=== PATIENT | female | born 1990 | race American Indian/Alaskan Native ===

== ENCOUNTER 2019-02-20 16:45 | Inpatient (IN) | payer MEDICAID ==
--- NOTE | 2019-02-20 17:38 | History and Physical Report ---
History of Present Illness Date of examination: 02/20/19 Date of admission: 02/20/19 16:45 Chief complaint: IOL secondary to oligohydramnios; BPP 4/8 History of present illness: 28 yo, @ 37.5 wks gestation. Initiated care at 9 wks. She was sent from clinic today for IOL for oligohydramnios (ROMEO- 0-2) and BPP of 4/8. She reports decreased movement and NST was equivocal. Denies LOF or VB. Her has been complicated by keloid growths on abdomen, Trichomonas (negative JONATHON - 08/09/18) and h/o HSV Igg (valtrex prophylaxis initiated on 02/12/19). Labs: O +, antibody negative; Rubella immune; VDRL non-reactive; HBsAg negative; HIV negative; HIV negative; Vit D - 10.8; Varicella immune; Gc/Chlamydia negative; Sickle cell screen negative; MSAFP negative; 1 hr gtt - 97; GBS negative. Past History Past Medical History: no pertinent history, other (Keloid growths - abdomen) Past Surgical History: no surgical history [employer] History: herpes, trichomonas Family/Genetic History: hypertension, other (Coagulation defect) Social history: single, full code. denies: smoking, alcohol abuse, prescription drug abuse, IV drug use - Obstetrical History Expected Date of Delivery: 03/08/19 Actual Gestation: 37 Week(s) 5 Day(s) : 2 Para: 0 Hx # Term Pregnancies: 0 Number of Pregnancies: 0 Spontaneous Abortions: 0 Induced : 1 Number of Living Children: 0 Medications and Allergies Allergies Allergy/AdvReac Type Severity Reaction Status Date / Time No Known Allergies Allergy Verified 02/20/19 17:20 Review of Systems All systems: negative - Vital Signs Vital signs: Vital Signs Pulse BP 85 130/69 02/20/19 17:20 02/20/19 17:20 Temp Pulse Resp BP Pulse Ox 85 130/69 02/20/19 17:20 02/20/19 17:20 - Physical Exam Breasts: Positive: normal Cardiovascular: Regular rate Lungs: Positive: Normal air movement Abdomen: Positive: other (Several keloids noted) Genitourinary (Female): Positive: normal external genitalia, normal perenium Vagina: Positive: normal moisture Uterus: Positive: other (S=D) Extremities: Positive: normal Deep Tendon Reflex Grade: Normal +2 - Obstetrical FHR: category 1 Uterine Contraction Monitor Mode: External Cervical Dilatation: 1 Cervical Effacement Percentage: 70 station: -3 Uterine Contraction Frequency (min): none Uterine Tone Measurement Phase: Resting Results All other labs normal. Assessment and Plan - Patient Problems (1) Encounter for induction of labor Current Visit: Yes Status: Acute (2) Oligohydramnios in third trimester Current Visit: Yes Status: Acute Plan to address problem: Admit to L & D Cervidil x 12 hr as tolerated Pain meds as desired Anticipate
[2019-02-20] MEDS ORDERED: XYLOCAINE 2% INFILTRATI ONE (17:58)
[2019-02-20] MEDS ORDERED: BRETHINE SUB-Q PRN (17:58)
[2019-02-20] MEDS ORDERED: ZOFRAN IV PRN (17:58)
[2019-02-20] MEDS ORDERED: SUBLIMAZE IV PRN (17:58)
[2019-02-20] MEDS ORDERED: CERVIDIL VG ONE (17:58)
[2019-02-20] MEDS ORDERED: STADOL IV PRN (17:58)
[2019-02-20] MEDS ORDERED: MINERAL OIL PO PRN (17:58)
[2019-02-20] MEDS ORDERED: PITOCin/NS 20 UNIT/1000ML DRIP 20 UNITS/1,000 ML BAG IV SCH (18:00)
[2019-02-20 19:05] LABS: Hematocrit 29.8 % (30.3-42.9); Hemoglobin 9.7 gm/dl (10.1-14.3); Mean Corpuscular HGB Conc 33 % (30-34); Mean Corpuscular Volume 94 fl (79-97); Platelet Count 271 K/mm3 (140-440); Red Blood Count 3.18 M/mm3 (3.65-5.03); Red Cell Distribution Width 14.3 % (13.2-15.2)
[2019-02-20] MEDS: TYLENOL PO PRN (20:56)
[2019-02-20] MEDS: LACTATED RINGERS 1,000 ML IV SCH (23:07)
--- NOTE | 2019-02-21 10:57 | Progress Note ---
Assessment and Plan A: IUP @ 37 6/7 Weeks Category I Tracing Oligo BPP 4/8 Maternal Obesity GBS Negative P: Cook's Cervical Ripening Balloon Placed Low-Dose Pitocin Subjective - Subjective Date of service: 02/21/19 Patient reports: movement normal Objective - Vital Signs Vital Signs: Vital Signs - 12hr 02/20/19 02/21/19 02/21/19 23:06 00:07 01:07 Temperature Pulse Rate 74 78 80 Respiratory Rate Blood Pressure 112/57 108/52 129/72 Blood Pressure [Right] O2 Sat by Pulse Oximetry 02/21/19 02/21/19 02/21/19 02:08 03:07 04:07 Temperature Pulse Rate 77 81 81 Respiratory Rate Blood Pressure 132/73 127/70 125/70 Blood Pressure [Right] O2 Sat by Pulse Oximetry 02/21/19 02/21/19 02/21/19 05:07 06:07 06:08 Temperature 98.6 F Pulse Rate 96 H 90 90 Respiratory 16 Rate Blood Pressure 111/61 125/73 Blood Pressure 125/73 [Right] O2 Sat by Pulse 99 Oximetry 02/21/19 02/21/19 06:55 07:07 Temperature 98.2 F Pulse Rate 85 Respiratory 18 Rate Blood Pressure 121/72 Blood Pressure [Right] O2 Sat by Pulse Oximetry - Exam Breasts: normal Cardiovascular: Regular rate Lungs: Clear to auscultation, Normal air movement Abdomen: Present: normal appearance, soft, normal bowel sounds Uterus: Present: normal, firm, fundal height above umbilicus FHR: category 1 Uterine Contraction Monitor Mode: External Cervical Dilatation: 2 (Intact) Cervical Effacement Percentage: 60 station: -3 Uterine Contraction Pattern: Absent Uterine Tone Measurement Phase: Resting Extremities: normal - Labs Labs: Abnormal Labs 02/20/19 18:22 WBC 14.7 H RBC 3.18 L Hgb 9.7 L Hct 29.8 L Laboratory Results - last 24 hr 02/20/19 02/20/19 18:22 18:22 WBC 14.7 H RBC 3.18 L Hgb 9.7 L Hct 29.8 L MCV 94 MCH 31 MCHC 33 RDW 14.3 Plt Count 271 Blood Type O POSITIVE Antibody Screen Negative
[2019-02-21] MEDS: TYLENOL PO PRN (10:59)
[2019-02-21] MEDS ORDERED: PITOCin/NS 30 UNIT/500ML 30 UNITS/500 ML BAG IV SCH (11:00)
--- NOTE | 2019-02-21 16:51 | Progress Note ---
Assessment and Plan A: IUP @ 37 6/7 Weeks Category I Tracing [place]lig[place] BPP 4/8 Maternal Obesity GBS Negative P: Continue Pitocin Augmentation AROM Internals X 2 Subjective - Subjective Date of service: 02/21/19 Patient reports: movement normal, contractions Objective - Vital Signs Vital Signs: Vital Signs - 12hr 02/21/19 02/21/19 02/21/19 05:07 06:07 06:08 Temperature 98.6 F Pulse Rate 96 H 90 90 Respiratory 16 Rate Blood Pressure 111/61 125/73 Blood Pressure 125/73 [Right] O2 Sat by Pulse 99 Oximetry 02/21/19 02/21/19 02/21/19 06:55 07:07 11:07 Temperature 98.2 F Pulse Rate 85 104 H Respiratory 18 Rate Blood Pressure 121/72 136/83 Blood Pressure [Right] O2 Sat by Pulse Oximetry 02/21/19 02/21/19 02/21/19 12:07 12:35 13:07 Temperature 98.2 F Pulse Rate 88 95 H Respiratory 22 Rate Blood Pressure 129/65 155/70 Blood Pressure [Right] O2 Sat by Pulse Oximetry 02/21/19 02/21/19 02/21/19 14:07 15:07 16:07 Temperature Pulse Rate 88 87 88 Respiratory Rate Blood Pressure 144/89 131/73 131/75 Blood Pressure [Right] O2 Sat by Pulse Oximetry - Exam Breasts: normal Cardiovascular: Regular rate Lungs: Clear to auscultation, Normal air movement Abdomen: Present: normal appearance, soft, normal bowel sounds Uterus: Present: normal, firm, fundal height above umbilicus FHR: category 1 Uterine Contraction Monitor Mode: External Cervical Dilatation: 6 (AROM of a small gush of clear fluid @ 1637) Cervical Effacement Percentage: 70 station: -2 Uterine Contraction Frequency (min): 2-3 Uterine Contraction Pattern: Regular Uterine Tone Measurement Phase: Resting Uterine Contraction Intensity: Moderate Extremities: normal - Labs Labs: Abnormal Labs 02/20/19 18:22 WBC 14.7 H RBC 3.18 L Hgb 9.7 L Hct 29.8 L Laboratory Results - last 24 hr 02/20/19 02/20/19 02/20/19 18:22 18:22 18:22 WBC 14.7 H RBC 3.18 L Hgb 9.7 L Hct 29.8 L MCV 94 MCH 31 MCHC 33 RDW 14.3 Plt Count 271 RPR Nonreactive Blood Type O POSITIVE Antibody Screen Negative
[2019-02-21] MEDS: LACTATED RINGERS 1,000 ML IV SCH ×2 (17:21→19:03)
--- NOTE | 2019-02-21 17:49 | Anesthesia Consultation ---
Anesthesia Consult and Med Hx Date of service: 02/21/19 - Airway Anesthetic Teeth Evaluation: Good ROM Head & Neck: Adequate Mental/Hyoid Distance: Adequate Mallampati Class: Class II Intubation Access Assessment: Probably Good - Pulmonary Exam CTA: Yes - Cardiac Exam Cardiac Exam: RRR - Pre-Operative Health Status ASA Pre-Surgery Classification: ASA3 Proposed Anesthetic Plan: Epidural - Pulmonary Hx Asthma: No COPD: No Hx Pneumonia: No - Cardiovascular System Hx Hypertension: No - Central Nervous System Hx Seizures: No Hx Psychiatric Problems: No - Endocrine Hx Renal Disease: No Hx End Stage Renal Disease: No Hx Hypothyroidism: No Hx Hyperthyroidism: No - Hematic Hx Anemia: No Hx Sickle Cell Disease: No - Other Systems Hx Alcohol Use: No Hx Obesity: Yes
[2019-02-21] MEDS ORDERED: NARCAN 2 MG/2 ML IV PRN (17:50)
[2019-02-21] MEDS ORDERED: fentaNYL-BUPIV 2 MCG/ML-0.125% 200 MCG/100 ML BAG EPIDURAL SCH (18:00)
[2019-02-21] MEDS ORDERED: CYTOTEC VG ONE ×2 (21:00→22:23)
[2019-02-21] MEDS ORDERED: CYTOTEC ONE (21:05)
[2019-02-21] MEDS ORDERED: METHERGINE IM ONE (21:06)
[2019-02-21] MEDS ORDERED: NORCO 5/325 PO PRN (22:08)
[2019-02-21] MEDS ORDERED: DULCOLAX PR PRN (22:08)
[2019-02-21] MEDS ORDERED: BENADRYL PO PRN (22:08)
[2019-02-21] MEDS ORDERED: LANSINOH TP PRN (22:08)
--- NOTE | 2019-02-21 22:18 | Procedure Note ---
OB Delivery Note - Delivery Date of Delivery: 02/21/19 (2056) Surgeon: CHAS MARK Estimated blood loss: other (400) - Vaginal Delivery presentation: vertex Delivery position: OA Intrapartum events: extend. bradycardia Delivery induction: cervidil Delivery augmentation: rupture of membranes, pitocin Delivery monitor: internal FHT, internal uterine Route of delivery: Delivery placenta: spontaneous Delivery cord: nuchal cord, 3 umbilical vessels Episiotomy: none Delivery laceration: 1st degree Delivery repair: vicryl Anesthesia: epidural Delivery comments: of a live 514 female infant over a 1st degree perineal laceration under epidural anesthesia with Apgars of 8 and 9 at 2056 on 02/21/2019. Nuchal cord x 1 easily manually reduced on the perineum prior to delivery of the anterior shoulder. Infant directly to maternal abd/chest, skin to skin contact. Spontaneous delivery of placenta complete and intact with Sahu side presenting at 2101. Heavy uterine bleeding and boggy uterus after placental delivery. Given Methergine 0.2mg IM and Cytotec 1000 mcg per rectum. Uterus became firm with vigorous external uterine massage; and bleeding became scant. Perineal laceration repaired with 2-[address]-1. Delayed cord clamping and cutting; Cord cut by maternal grandmother. Cord blood collected; Placenta discarded. - Infant A at 1 minute: 8 at 5 minutes: 9 Infant Gender: Female ([phone])
[2019-02-21] MEDS ORDERED: SODIUM CHLORIDE FLUSH SYRINGE 10 ML IV PRN (23:00)
[2019-02-22] MEDS: IBUPROFEN PO SCH ×4 (01:07→23:38)
[2019-02-22] MEDS: PRENATAL VITAMIN PO SCH (10:20)
[2019-02-22 11:15] LABS: Hematocrit 25.7 % (30.3-42.9); Hemoglobin 8.3 gm/dl (10.1-14.3)
--- NOTE | 2019-02-22 11:34 | Progress Note ---
Assessment and Plan A: PPD#1 s/p 02/21/19 @ 20:57 Bottlefeeding Stable P: Routine PP care Anticipate discharge home in am Subjective - Subjective Date of service: 02/22/19 Principal diagnosis: PPD#1 s/p 02/21 @ 2056 Interval history: See H&P and delivery note Patient reports: appetite normal, voiding normally, pain well controlled, ambulating normally [place]: doing well, bottle feeding Objective - Vital Signs Latest vital signs: Vital Signs Temp Pulse Resp BP BP Pulse Ox 02/22/19 04:30 98.4 F 81 18 103/61 02/22/19 01:07 18 02/22/19 00:00 98.7 F 75 19 122/64 02/21/19 22:56 83 122/58 02/21/19 22:41 84 115/55 02/21/19 22:26 84 125/58 02/21/19 22:19 99.4 F 92 H 18 113/73 02/21/19 22:11 88 125/60 02/21/19 21:57 91 H 129/58 02/21/19 21:41 141/68 02/21/19 21:33 89 131/63 02/21/19 21:29 94 H 124/59 02/21/19 21:14 105 H 114/55 02/21/19 20:44 102 H 137/67 100 02/21/19 20:39 105 H 100 02/21/19 20:34 96 H 100 02/21/19 20:29 95 H 100 02/21/19 20:24 105 H 100 02/21/19 20:19 99 H 100 02/21/19 20:14 98 H 100 02/21/19 20:12 101 H 123/58 02/21/19 20:09 102 H 100 02/21/19 20:08 113 H 121/55 02/21/19 20:06 114 H 118/62 02/21/19 20:04 97 H 121/62 100 02/21/19 20:00 95 H 189/68 02/21/19 19:59 94 H 100 02/21/19 19:57 96 H 147/70 02/21/19 19:56 101 H 150/71 02/21/19 19:54 98 H 128/65 100 02/21/19 19:51 94 H 138/72 02/21/19 19:49 90 144/65 100 02/21/19 19:47 96 H 142/64 02/21/19 19:45 99 H 132/69 02/21/19 19:44 93 H 100 02/21/19 19:43 91 H 133/63 02/21/19 19:41 90 124/59 02/21/19 19:40 98 H 121/71 02/21/19 19:39 100 H 100 02/21/19 19:37 97 H 122/61 02/21/19 19:35 91 H 132/68 02/21/19 19:34 94 H 100 02/21/19 19:33 96 H 133/65 02/21/19 19:32 88 146/66 02/21/19 19:29 88 121/67 100 02/21/19 19:27 92 H 121/62 02/21/19 19:25 87 131/59 02/21/19 19:24 86 100 02/21/19 19:23 95 H 145/63 02/21/19 19:22 96 H 138/63 02/21/19 19:19 90 134/58 100 02/21/19 19:18 93 H 141/63 02/21/19 19:16 93 H 109/58 02/21/19 19:14 93 H 100 02/21/19 19:13 93 H 127/59 02/21/19 19:12 92 H 132/62 02/21/19 19:10 98.7 F 92 H 18 151/70 145/63 02/21/19 19:09 91 H 100 02/21/19 19:07 100 H 97/55 02/21/19 19:05 85 112/59 02/21/19 19:04 102 H 100 02/21/19 19:03 95 H 111/57 02/21/19 19:02 93 H 134/60 02/21/19 19:00 98 H 147/63 02/21/19 18:59 100 H 99 02/21/19 18:54 92 H 100 02/21/19 18:53 92 H 125/57 02/21/19 18:51 80 127/63 02/21/19 18:49 85 123/60 100 02/21/19 18:47 86 132/62 02/21/19 18:46 95 H 137/61 02/21/19 18:44 98 H 133/65 98 02/21/19 18:41 86 135/63 02/21/19 18:39 81 130/63 100 02/21/19 18:37 88 129/62 02/21/19 18:35 90 124/60 02/21/19 18:34 93 H 120/66 97 02/21/19 18:31 89 139/77 02/21/19 18:29 90 144/69 99 02/21/19 18:26 103 H 152/65 02/21/19 18:24 101 H 99 02/21/19 18:08 94 H 149/79 02/21/19 17:18 97.9 F 02/21/19 17:07 97 H 139/66 02/21/19 16:07 88 131/75 02/21/19 15:07 87 131/73 02/21/19 14:07 88 144/89 02/21/19 13:07 95 H 155/70 02/21/19 12:35 98.2 F 22 02/21/19 12:07 88 129/65 Intake and Output 02/21/19 02/22/19 02/22/19 23:59 07:59 15:59 Intake Total 235.7 300 Output Total 500 600 Balance -264.3 -300 Intake: IV 235.7 Lactated Ringers 1,000 ml 212.5 @ 125 mls/hr IV DIRECT VIRAL Rx#:[id number] PITOCin/NS 30 UNIT/500ML 23.2 30 units In 500 ml @ 4 mls/hr IV TITR VIRAL Rx#: [id number] Intake, Free Water 300 Output: Urine 500 600 Indwelling Catheter 300 Void 200 600 Other: Total, Output Amount 200 600 # Voids Void 1 1 Estimated Blood Loss 400 - Exam Breasts: Present: normal Cardiovascular: Present: Regular rate, Normal S1, Normal S2, No murmurs Lungs: Present: Clear to auscultation, Normal air movement Abdomen: Present: normal appearance, soft, normal bowel sounds. Absent: distention, tenderness Vulva: both: laceration/episiotomy (1st degree, well approximated) Uterus: Present: firm, fundal height below umbilicus (-1) Extremities: Present: normal Deep Tendon Reflex Grade: Normal +2 - Labs Labs: Abnormal lab results 02/22/19 Range/Units 10:35 Hgb 8.3 L (10.1-14.3) gm/dl Hct 25.7 L (30.3-42.9) %
--- NOTE | 2019-02-22 11:36 | Discharge Summary ---
Providers - Providers Date of Admission: 02/20/19 16:45 Date of discharge: 02/23/19 Attending physician: MAHESH JOHNSON MD Primary care physician: MAHESH JOHNSON MD Hospitalization Reason for admission: active labor, IUP at term Delivery: Procedure details: Seer H&P and delivery note Episiotomy: none Laceration: 1st degree complications: none Discharge diagnosis: IUP at term delivered baby: female Condition at discharge: Good Disposition: DC-01 TO HOME OR SELFCARE Plan - Provider Discharge Summary Activity: routine, no sex for 6 weeks, no heavy lifting 4 weeks, no strenuous exercise Diet: routine Instructions: routine Additional instructions: [] Smoking cessation referral if applicable(refer to patient education folder for contact #) [] Refer to [facility] Booklet Call your doctor immediately for: * Fever > 100.5 * Heavy vaginal bleeding ( >1 pad per hour) * Severe persistent headache * Shortness of breath * Reddened, hot, painful area to leg or breast * Drainage or odor from incision. * Keep incision clean and dry at all times and follow doctor's instructions regarding bathing/showering - Follow up plan Follow up: MAHESH JOHNSON MD [Primary Care Provider] - 6 Weeks
[2019-02-23] MEDS: IBUPROFEN PO SCH ×2 (05:51→12:56)
[2019-02-23 09:27] VITALS: BP 124/78
[2019-02-23] MEDS: PRENATAL VITAMIN PO SCH (10:20)
== END 2019-02-23 15:00 | disposition home or self-care (01) | DRG 775 ==
LOC: LD 16:45 → OB 02-21 23:18
PROVIDERS: ADMIT Obstetrics & Gynecology; ATTEND Obstetrics & Gynecology
PROC: 10E0XZZ Delivery of Products of Conception, External Approach (ICD-10-PCS; principal; 2019-02-21)
PROC: 0HQ9XZZ Repair Perineum Skin, External Approach (ICD-10-PCS; 2019-02-21)
PROC: 3E0P7VZ Introduction of Hormone into Female Reproductive, Via Natural or Artificial Opening (ICD-10-PCS; 2019-02-21)
PROC: 3E0R3BZ Introduction of Anesthetic Agent into Spinal Canal, Percutaneous Approach (ICD-10-PCS; 2019-02-21)
PROC: 00HU33Z Insertion of Infusion Device into Spinal Canal, Percutaneous Approach (ICD-10-PCS; 2019-02-21)
PROC: 10907ZC Drainage of Amniotic Fluid, Therapeutic from Products of Conception, Via Natural or Artificial Opening (ICD-10-PCS; 2019-02-21)
DX: O76 Abnormality in fetal heart rate and rhythm complicating labor and delivery (principal); O41.03X0 Oligohydramnios, third trimester, not applicable or unspecified; O69.1XX0 Labor and delivery complicated by cord around neck, with compression, not applicable or unspecified; O99.214 Obesity complicating childbirth; E66.9 Obesity, unspecified; O70.0 First degree perineal laceration during delivery; Z3A.37 37 weeks gestation of pregnancy; Z37.0 Single live birth; Z82.49 Family history of ischemic heart disease and other diseases of the circulatory system
CPT/HCPCS: 36415; 59200; 85014; 85018; 85027; 86592; 86850; 86900; 86901; G0378; J0595; J2210; J2405; J2590; J7120